=== PATIENT | male | born 1940 | race Caucasian/White ===

== ENCOUNTER 2025-05-15 12:51 | Outpatient (AMB) | payer OTHER, SELFPAY ==
--- NOTE | 2025-05-15 13:05 | A.OFFVIS_ITS ---
Intake Visit Reasons: 6M AD Allergies oxycodone (From OxyContin) Allergy (Unknown, Verified 05/08/25 09:58) Unknown Medication List - Last Reconciled 05/15/25 by Kory Graham MD carbidopa-levodopa 25-100 mg 1 tab PO TID donepezil 10 mg PO BEDTIME famotidine 20 mg PO BEDTIME PRN glipizide 5 mg PO DAILY indapamide 1.25 mg PO DAILY memantine 5 mg PO BID metformin 850 mg PO BID simvastatin 80 mg PO BEDTIME HPI Comments Details: 85 yo RH man with history of hypertension, diabetes, prostate cancer, dementia, and episodes that look like seizures. Routine EEG at office was normal. Levetiracetam did not make any difference. He continues to have episodes of shaking. His said that she was not inclined for more testing. As he was leaving the office he had the episode. It was when he was trying to pass the doorway when he froze and trembled. It was similar to parkinsonian shuffle without any alteration of consiousness. He is presenting with dementia. He has significant memory impairment, with the p hrase memory. Gone. Gone being used to describe his condition. A previous diagnostic evaluation, including a brain scan six months ago, indicated dementia. Currently, he faces challenges regarding the effectiveness of his medications. Additional concerns include difficulty swallowing, particularly when taking multiple medications, as he takes 13 pills in the morning and five in the evening. He uses a walker for mobility, suggesting some physical limitations. Despite these challenges, his mood and sleep are reportedly stable. REPLACED BY [facility] Medical History (Updated 05/15/25 @ 13:09 by Kory Graham MD) Alzheimer disease Seizure disorder Review of Systems Const Details: - Neurologic: Reports memory impairment and difficulty swallowing. Reports using a walker. - Psychiatric: Reports mood is okay. - General: Reports sleep is okay. Physical Exam Neuro Other: He is alert and awake not much interactive but able to answer questions. At times he was smiling. Facial expression blinking were slightly diminished. He has difficulty getting in and out of chair. There was [id number] generalized bradykinesia. Gait was slow and cautious. Assessment & Plan Assessment & Plan (1) Parkinson disease: Code(s): G20.A1 - Parkinson's disease without dyskinesia, without mention of fluctuations Category: Medical Qualifiers: Dyskinesia presence: without dyskinesia Fluctuating manifestations: without fluctuating manifestations Qualified Code(s): G20.A1 - Parkinson's disease without dyskinesia, without mention of fluctuations (2) Alzheimer dementia: Comment: EEG at off in Sep 2024: [place] Code(s): G30.9 - Alzheimer's disease, unspecified; F02.80 - Dementia in other diseases classified elsewhere, unspecified severity, without behavioral disturbance, psychotic disturbance, mood disturbance, and anxiety Category: Medical Qualifiers: Alzheimer's disease onset: late onset Dementia severity: moderate Dementia behavioral or psychological symptom: without behavioral, psychotic, or mood disturbance or anxiety Qualified Code(s): G30.1 - Alzheimer's disease with late onset; F02.B0 - Dementia in other diseases classified elsewhere, moderate, without behavioral disturbance, psychotic disturbance, mood disturbance, and anxiety Plan Impression: a: Dementia, moderate, probably of Alzheimer type b: Parkinsonism Rec: a: MRI brain WO to r/o alternate diagnosis such as NPH b: Memantine 10mg bid c: Donepezil 10mg a day d: Carbidopa/levodopa 25/100, 2-3 a day Orders: Orders MR head/brain wo con Today F02.B0 - Dementia in other diseases classified elsewhere, moderate, without behavioral disturbance, psychotic disturbance, mood disturbance, and anxiety, G20.A1 - Parkinson's disease without dyskinesia, without mention of fluctuations, G30.1 - Alzheimer's disease with late onset Coding Level of Care Code Tele Est Pt Level 4 (68641) Diagnoses Parkinson's disease without dyskinesia or fluctuating manifestations G20.A1 Dyskinesia presence: without dyskinesia Fluctuating manifestations: without fluctuating manifestations Moderate late onset Alzheimer's dementia without behavioral disturbance, psychotic disturbance, mood disturbance, or anxiety G30.1; F02.B0 Alzheimer's disease onset: late onset Dementia severity: moderate Dementia behavioral or psychological symptom: without behavioral, psychotic, or mood disturbance or anxiety
--- OUTSIDE RECORDS SUMMARY | 2025-05-15 13:43 | XMS_ITS | Clinical Summary ---
Author Organization [address] [facility] Address [address] [place] [address] Phone Care Team Providers Care Circuit Board Inspector Name Role Phone Arianna Conte MD Primary Care Provider [phone] Allergies Active Allergy Reactions Criticality Noted Date Comments Oxycodone Hcl Nausea And Vomiting 10/11/2009 Medications bicalutamide (CASODEX) 50 mg tablet Take 1 tablet (50 mg total) by mouth 1 (one) time each day 01/25/20 24 Active leuprolide acetate (ELIGARD SUBQ) Inject 1 Each into the skin Every 6 Months Active sucralfate (CARAFATE) 1 gram tablet Take 1 Tablet by mouth 4 times daily as needed (Heartburn) 10/30/19 24 Active CYANOCOBALAMIN, VITAMIN B-12, ORAL Take by mouth 1 (one) time each day. Active multivit with minerals/lutein (MULTIVITAMIN 50 PLUS ORAL) Take by mouth 1 (one) time each day. Active omeprazole (PriLOSEC) [address] capsule Take 1 capsule (10 mg total) by mouth 1 (one) time each day. For 360 days. 06/27/20 20 Active blood-glucose meter kit 1 kit by Not Applicable route 2 (two) times a day. 06/19/20 20 Active aspirin 81 mg EC tablet Take 1 tablet (81 mg total) by mouth 1 (one) time each day. Active levETIRAcetam (KEPPRA) 250 mg tablet Take 1 tablet (250 mg total) by mouth 2 (two) times a day. for 30 days 08/03/20 24 Active OneTouch Ultra Test test strip USE TO CHECK GLUCOSE DAILY 100 strip 1 08/24/20 Active lancets 33 gauge misc 1 Lancet by Other route. Use to check glucose daily 05/24/20 Active famotidine (PEPCID) 20 mg tablet Take 1 tablet (20 mg total) by mouth at bedtime as needed for heartburn. 90 tablet 1 09/02/20 24 Active carbidopa-levodo pa (SINEMET) 10-100 mg per tablet Take 1 tablet by mouth 3 (three) times a day. Active losartan (COZAAR) 50 mg tablet Take 0.5 tablets (25 mg total) by mouth 1 (one) time each day. Active simvastatin (ZOCOR) 80 mg tabletIndication s:Hyperlipidemia , unspecified TAKE 1 TABLET BY MOUTH EVERYDAY AT BEDTIME 90 tablet 1 03/03/20 25 Active tamsulosin (FLOMAX) 0.4 mg 24 hr capsule TAKE 1 CAPSULE BY MOUTH DAILY. TAKE 30 MINS AFTER SAME MEAL EVERY DAY. 90 capsule 1 03/28/20 25 Active donepeziL (ARICEPT) 10 mg tablet Take 1 tablet (10 mg total) by mouth at bedtime. 90 tablet 1 03/28/20 25 Active indapamide (LOZOL) 1.25 mg tabletIndication s:Essential (primary) hypertension,Chr onic kidney disease, stage 3 unspecified (CMS/HCC V24, CMS/HCC V28) Take 1 tablet (1.25 mg total) by mouth 1 (one) time each day. 90 tablet 1 03/28/20 25 Active memantine (NAMENDA) 5 mg tablet Take 1 tablet (5 mg total) by mouth 2 (two) times a day. 180 tablet 1 03/28/20 25 Active metFORMIN (GLUCOPHAGE) 850 mg tabletIndication s:Type 2 diabetes mellitus with other specified complication (CMS/HCC V24, CMS/HCC V28) Take 1 tablet (850 mg total) by mouth 2 (two) times a day with meals. 180 tablet 1 03/28/20 25 Active glipiZIDE (GLUCOTROL) 5 mg tabletIndication s:Type 2 diabetes mellitus with other specified complication (CMS/HCC V24, CMS/HCC V28) TAKE 1 TABLET BY MOUTH EVERY DAY 90 tablet 1 04/24/20 25 Active glipiZIDE (GLUCOTROL) 5 mg tabletIndication s:Type 2 diabetes mellitus with other specified complication ([facility] V24, [facility] V28) TAKE 1 TABLET BY MOUTH EVERY DAY 90 tablet 1 10/28/19 25 025 Discontinued Active Problems Problem Noted Date Diagnosed Date Seizure disorder ([facility] V24, [facility] V28) 07/29 Murmur 08/05/2022 Overview (07/05/2024): Echo 10/20. Mild MR. Normal EF Dementia ([facility] V24, [facility] V28) 08/22/2021 Overview (07/05/2024): 07/18. Neuropsych denied by insurance MRI 09/2021-- Extensive nonspecific white matter changes, may represent particularly severe chronic ischemic white matter change as is commonly seen in the elderly. Atrophy which is somewhat advanced for the patient's age Sleep apnea 06/10/2021 Overview (07/05/2024): Per pt. On cpap and supplemental O2. Could not tolerate mask. 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 Needs ct in january 2018 Essential hypertension 07/21/2016 Urinary retention 01/18/2013 Overview (07/05/2024): [facility] 01/08 - Flomax Hypercholesteremia 10/11/2009 Resolved Problems Problem Noted Date Diagnosed Date Resolved Date Hernandez's esophagus 11/10/2017 02/15/20 Overview (07/05/2024): egd 11/03/17 dr maggie Thomas eczema 09/14/2015 08/15/2024 Overview (07/05/2024): [facility] GERD (gastroesophageal reflux disease) 10/11/2009 08/15/2024 Overview (07/05/2024): Orlando Mtz MD (the patient doesn't want to see him again) Hernandez's esophagus - endoscopy q3 years (due 08/13) 01/11 - doesn't tolerate going off of PPI Encounters Date Type Department Care Team Description 02/14/2025 10:45 AM EDT Office Visit Adult Medicine [address] [address] Arianna Conte MD Essential hypertension (Primary Dx); Type 2 diabetes mellitus with hyperlipidemia ([facility] V24, CMS/[facility] V28); Hypercholesteremia; Parkinson's disease with dyskinesia and fluctuating manifestations (CMS/HCC V24, CMS/[facility] V28); Severe dementia, unspecified dementia type, unspecified whether behavioral, psychotic, or mood disturbance or anxiety (CMS/HCC V24, CMS/[facility] V28) from Last 3 Months Immunizations Name Administration Dates Next Due Influenza Quadravalent, MDCK , 0.5ml, preservative free (Flucelvax) 6mo and older 10/04/2018 Influenza Quadravalent, MDCK , 0.5ml, with preservative (Flucelvax) 6mo and older 08/18/2017 Influenza trivalent, 0.5mL ( Fluzone High-dose) 65yo and older 06/22/2023,07/25/2022,06/10/2021,06/24,07/21/2016,07/18/2015,07/07/2014 ,06/17/2013,08/16/2010,09/09/2004 Influenza trivalent, 0.5mL, preservative free (Fluarix; FluLaval; Fluzone) ages 6mo and older (Afluria) 3 years and older 09/01/2012 Influenza trivalent, with pr eservative (Fluzone; Afluria) 6mo and older 09/17/2011 Pfizer SARS-CoV-2 COVID-19, mRNA, LNP-S, preservative free 12/31/2021,07/05/2021,11/27/2020,11/06 Pneumococcal conjugate 13 va lent (Prevnar 13, PCV13) 2mo and older 02/07/2015 Pneumococcal polysaccharide 23 valent (Pneumovax 23) 2yo and older 01/04/2014,11/05/2001 SARS-COV-2 (COVID-19) Vaccin e, Unspecified 07/25/2022 Td Tetanus diptheria (Tdvax) 7yo and older 12/31/2009 Tdap Tetanus diptheria acell ular pertussis (Boostrix; Adacel) 7yo and older 11/08/2019 Zoster Live 06/09/2012 Surgical History Surgery Date Site/Laterality Comments CATARACT EXTRACTION 03/2011 PROCEDURE: HISTORICAL CATARACT REMOVAL; COMMENT: OD done by Dr. Cosme ESOPHAGOGASTRODUODENOSCOPY 03/2010 [facility] PROCEDURE: [place] ESOPHAGOGASTRODUODENOSCOPY TRANSORAL DIAGNOSTIC; COMMENT: Hernandez's esophagus; repeat in 2012 COLONOSCOPY 04/11/2005 PROCEDURE: HISTORICAL COLONOSCOPY; COMMENT: adenoma resected trans-anally COLONOSCOPY W/ BIOPSIES 09/14/12 PROCEDURE: [place] COLONOSCOPY STOMA W/BIOPSY SINGLE/MULTIPLE; COMMENT: rectal adenoma and tics; repeat sigmoidoscopy in 1 year OTHER SURGICAL HISTORY 01/04/13 PROCEDURE: [place] PROCTOSGMDSC RIGID RMVL 1 LESION CAUTERY; COMMENT: Dr. Osorio - excision of rectal adenoma EYE SURGERY PROCEDURE: HISTORICAL EYE SURGERY; COMMENT: YAG capsulotomy by Dr. Cosme ESOPHAGOGASTRODUODENOSCOPY 11/03/2017 [facility] PROCEDURE: [place] EGD TRANSORAL BIOPSY SINGLE/MULTIPLE; COMMENT: 6 cm hiatus hernia, without Hernandez's on biopsy. Would not repeat COLONOSCOPY 11/03/17 [facility] PROCEDURE: [place] COLONOSCOPY STOMA W/RMVL SAVITA POLYP/OTH LES SNARE; COMMENT: tics, hemorrhoids and hyperplastic polyp; Would not repeat. Medical History Medical History Date Comments Urinary retention 01/18/2013 DX:Urinary ret ention; COMMENT: [facility] 01/08 - Flomax Type II or unspecified type diabetes mellitus without mention of complication, not stated as uncontrolled 10/11/2009 DX:Type II or unspecified ty pe diabetes mellitus without mention of complication, not stated as uncontrolled; COMMENT: Only rarely checks fingerstick blood sugars Pseudophakia 08/12/2012 DX:Pseudophakia Overweight (BMI 25.0-29.9) 07/07/2014 DX:Ov erweight (BMI 25.0-29.9) Ocular hypertension 12/06/2009 DX:Ocular hy pertension Hyperlipemia 10/11/2009 DX:Hyperlipemia 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 Osorio Patient cancelled sigmoidoscopy with Dr. Mtz (per office documentation) 02/08- irregular rectal mucosa on exam; flexible sigmoidoscopy under anesthesia with pathology shows incompletely resected tubulovillous adenoma; unremarkable follow up 10/12, 05/12; discharged to routine care with Dr. 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 Needs ct in january 2018 Hernandez's esophagus 11/10/2017 DX:Hernandez's esophagus; COMMENT: egd 11/03/17 dr serrano Family History Medical History Relation Name Comments Cataracts Aunt maternal No Known Problems Brother 1 Other cancer Brother 2 No Known Problems Daughter Stroke Father No Known Problems Maternal Grandfather No Known Problems Maternal Grandmother No Known Problems Mother No Known Problems Other No Known Problems Paternal Grandfather No Known Problems Paternal Grandmother Uterine cancer Sister Hyperlipidemia Son No Known Problems Uncle Blindness Neg Hx Glaucoma Neg Hx Macular degeneration Neg Hx Strabismus Neg Hx Relation Name Status Comments Aunt Brother 1 Alive Brother 2 Daughter Alive Father Maternal Grandfather Maternal Grandmother Mother Other Paternal Grandfather Paternal Grandmother Sister Son Alive Uncle Social History Tobacco Use Types Packs/Day Years Used Date Smoking Tobacco: Never Smokeless Tobacco: Never Tobacco Cessation:Counseling Given: Not Answered Alcohol Use Standard Drinks/Week Comments Yes 7 (1 standard drink = 0.6 oz pur e alcohol) Sex and Gender Information Value Date Recorded Sex Assigned at Not on file Legal Sex Male 11:32 PM EST Gender Identity Not on file Sexual Orientation Not on file Obstetrics History Last Filed Vital Signs Vital Sign Reading Time Taken Comments Blood Pressure 103/65 02/14/2025 10:33 AM EDT Pulse 70 02/14/2025 10:33 AM EDT Temperature 36.3 C (97.4 F) 02/14/2025 10:33 AM EDT Respiratory Rate - - Oxygen Saturation 95% 08/15/2024 9:57 AM EST Inhaled Oxygen Concentration - - Weight 93.6 kg (206 lb 6.4 oz) 02/14/2025 10:33 AM EDT Height 172.7 cm (5' 8 ) 02/14/2025 10:33 AM EDT Body Mass Index 31.38 02/14/2025 10:33 AM EDT Plan of Treatment Upcoming Encounters Date Type Department Care Team (Late st Contact Info) Description 08/22/2025 10:30 AM EST Office Visit Adult [facility] [address] [place] [address] Arianna Conte MD [address] [place] [address] Health Maintenance Due Date Last Done Comments Zoster Vaccines (1 of 2) 08/04/2012 06/09/2012 RSV Immunization Adult Patients (1 - 1-dose 75+ series) 2013 Falls Risk Assessment 09/06/2022 Medicare Annual Wellness Visit 09/06/2022 Social Influencers of Health Screening 09/06/2022 COVID-19 Vaccine ( season) 2024 06/22/2023, 07/25/2022, 12/31/2021, Additional history exists Depression Screening 09/28/2024 08/10/2024, 01/11/20 24 Influenza Vaccine (#1) 2025 , 06/22/2023, 07/25/2022, Additional history exists Diabetes: Blood Sugar Control Test (HGBA1C) 08/12/2025 02/09/2025, 08/11/2024, 05/24/2024, Additional history exists Diabetes: Annual Retina Eye Exam 12/23/2025 12/23/2024, 12/23/2023 Hypertension/CHF/CAD Annual BMP Blood Test 02/09/2026 02/09/2025, 08/11/2024, 02/04/2024, Additional history exists Diabetes: Annual Foot Exam 02/14/202602/14, 08/15/2024, 02/10/2024 DTaP,Tdap,and Td Vaccines (3 - Td or Tdap) 11/08/2029 11/08/2019, 12/31/2009 Cholesterol Screening (Lipid Panel) 02/09/2030 02/09/2025, 08/11/2024, 02/04/2024, Additional history exists Pneumococcal Vaccine: 50+ Years Completed 02/07/2015, 01/04/2014, 11/05/2001 HIB Vaccines Aged Out No longer eligi ble based on patient's age to complete this topic HPV Vaccines Aged Out No longer eligi ble based on patient's age to complete this topic Hepatitis A Vaccines Aged Out No long er eligible based on patient's age to complete this topic Hepatitis B Vaccines Aged Out No long er eligible based on patient's age to complete this topic IPV Vaccines Aged Out No longer eligi ble based on patient's age to complete this topic MMR Vaccines Aged Out No longer eligi ble based on patient's age to complete this topic Meningococcal ACWY Vaccine Aged Out N o longer eligible based on patient's age to complete this topic Meningococcal B Vaccine Aged Out No l onger eligible based on patient's age to complete this topic RSV Immunization Patients Under 20 months Aged Out No longer eligible based on patient's age to complete this topic Varicella Vaccines Aged Out No longer eligible based on patient's age to complete this topic Procedures Procedure Name Priority Date/Time Associated Diagnosis Comments COMPREHENSIVE METABOLIC PANEL Routine 02/09/2025 10:01 AM EDT Type 2 diabetes mellitus with hyperlipidemia ([facility] V24, [facility] V28) HEMOGLOBIN A1C Routine 02/09/2025 10:01 AM EDT Type 2 diabetes mellitus with hyperlipidemia ([facility] V24, [facility] V28) LIPID PANEL WITH REFLEX TO DIRECT LDL Routine 02/09/2025 10:01 AM EDT Type 2 diabetes mellitus with hyperlipidemia ([facility] V24, [facility] V28) EXTERNAL DIABETIC RETINA EYE EXAM 12/23/2024 DIABETES FOOT EXAM Routine 02/10/2024 DEPRESSION SCREENING Routine 2024 from Last 3 Months or Most Recently Relevant to Health Maintenance Results * (ABNORMAL) Lipid panel with reflex to direct LDL (02/09/2025 10:01 AM EDT) Cholesterol 137 0 - 200 mg/dL LAB CHEMISTRY METHOD 02/09/2025 1:47 PM [facility] Triglycerides 199(H) 0 - 150 mg/dL LAB CHEMISTRY METHOD 02/09/2025 1:47 PM [facility] HDL 42 >=40 mg/dL LAB CHEMISTRY METHOD 02/09/2025 1:47 PM [facility] LDL Calculated 55 0 - 100 mg/dL LAB CHEMISTRY METHOD 02/09/2025 1:47 PM [facility] VLDL Cholesterol Sam 39.8 mg/dL LAB CHEMISTRY METHOD 02/09/2025 1:47 PM [facility] Non HDL Chol. (LDL+VLDL) 95 <145 mg/dL LAB CHEMISTRY METHOD 02/09/2025 1:47 PM [facility] Chol/HDL Ratio 3.3 0.0 - 4.4 LAB CHEMISTRY METHOD 02/09/2025 1:47 PM [facility] Blood Venous blood specimen / Unknown Venipuncture / Unknown 02/09/2025 10:01 AM EDT 02/09/2025 10:06 AM EDT us Arianna Conte MD LAB BLOOD ORDERABLES Final Res ult Performing Organization Address [facility]/ZIP Co de Phone Number [facility] [address] [place] [address], [place] [phone] * Hemoglobin A1c (02/09/2025 10:01 AM EDT) [facility] Hemoglobin A1C 6.3 <6.5 % LAB CHEMISTRY METHOD 02/09/2025 5:16 PM EDT [facility] Mean Bld Glu Estim. 134 mg/dL LAB CHEMISTRY METHOD 02/09/2025 5:16 PM EDT [facility] Blood Venous blood specimen / Unknown Venipuncture / Unknown 02/09/2025 10:01 AM EDT 02/09/2025 10:06 AM EDT us Arianna Conte MD LAB BLOOD ORDERABLES Final Res ult [facility] [address] [place] [address], [place] [phone] * (ABNORMAL) Comprehensive metabolic panel (02/09/2025 10:01 AM EDT) [facility] Sodium 140 133 - 145 mmol/L LAB CHEMISTRY METHOD 02/09/2025 1:47 PM EDT [facility] Potassium 4.6 3.5 - 5.5 mmol/L LAB CHEMISTRY METHOD 02/09/2025 1:47 PM EDT [facility] Chloride 107 96 - 110 mmol/L LAB CHEMISTRY METHOD 02/09/2025 1:47 PM EDT [facility] CO2 25 21 - 32 mmol/L LAB CHEMISTRY METHOD 02/09/2025 1:47 PM EDT [facility] Anion Gap 8 3 - 11 LAB CHEMISTRY METHOD 02/09/2025 1:47 PM [facility] Glucose 259(H) 70 - 100 mg/dL LAB CHEMISTRY METHOD 02/09/2025 1:47 PM [facility] BUN 27(H) 5 - 25 mg/dL LAB CHEMISTRY METHOD 02/09/2025 1:47 PM [facility] Creatinine 1.75(H) 0.70 - 1.30 mg/dL LAB CHEMISTRY METHOD 02/09/2025 1:47 PM [facility] eGFR 37(L) >=60 mL/min/1. 73m2 LAB CHEMISTRY METHOD 02/09/2025 1:47 PM [facility] Comment:Calculation based on the Chronic Kidney Disease Epidemiology Collaboration (CKD-EPI) equation refit without adjustment for race. BUN/Creatinine Ratio 15.4 LAB CHEMISTRY METHOD 02/09/2025 1:47 PM [facility] Calcium 9.8 8.5 - 10.5 mg/dL LAB CHEMISTRY METHOD 02/09/2025 1:47 PM [facility] AST (SGOT) 18 10 - 42 unit/L LAB CHEMISTRY METHOD 02/09/2025 1:47 PM [facility] ALT (SGPT) 22 10 - 60 unit/L LAB CHEMISTRY METHOD 02/09/2025 1:47 PM [facility] Alkaline Phosphatase 72 42 - 121 unit/L LAB CHEMISTRY METHOD 02/09/2025 1:47 PM [facility] Total Protein 6.7 6.0 - 8.0 g/dL LAB CHEMISTRY METHOD 02/09/2025 1:47 PM [facility] Albumin 4.0 3.2 - 5.0 g/dL LAB CHEMISTRY METHOD 02/09/2025 1:47 PM [facility] Total Bilirubin 0.5 0.0 - 1.4 mg/dL LAB CHEMISTRY METHOD 02/09/2025 1:47 PM [facility] Blood Venous blood specimen / Unknown Venipuncture / Unknown 02/09/2025 10:01 AM EDT 02/09/2025 10:06 AM EDT Arianna Conte MD LAB BLOOD ORDERABLES Final Res ult [facility] [address] [place] [address], [place] [phone] * External Diabetic Retina Eye Exam Report (12/23/2024) Anatomical Region Laterality Modality Ultrasound Provider [facility] US PROCEDURES Final Result * Diabetes Foot Exam (02/10/2024) Pathologist [facility] Diabetes: Annual Foot Exam abstracted Historical Provider HEALTH MAINTENANCE Final Result * Depression Screening (2024) Pathologist [facility] Depression Screening abstracted Historical Provider HEALTH MAINTENANCE Final Result from Last 3 Months or Most Recently Relevant to Health Maintenance Insurance [employer] Care Teams Circuit Board Inspector Relationship Specialty Start Date End Date Arianna Conte MD [address] [place] [id number] PCP - General Internal Medicine 01/25/21
--- OUTSIDE RECORDS SUMMARY | 2025-05-15 13:43 | XMS_ITS ---
Author Name [facility] Organization Unknown Care Team Organization Name Specialty Phone Email Start Date End Da te [facility] JEANINE VEGA Primary Care 08/05/2022 05/16/2024
== END 2025-05-15 13:14 | disposition home or self-care (01) ==
LOC: HO.HSM 12:51
PROVIDERS: PCP Pediatrics; Referring Provider Pediatrics; Visit Provider Psychiatry & Neurology Neurology
DX: G20.A1 Parkinson's disease without dyskinesia, without mention of fluctuations (principal); G30.1 Alzheimer's disease with late onset; F02.B0 Dementia in other diseases classified elsewhere, moderate, without behavioral disturbance, psychotic disturbance, mood disturbance, and anxiety
CPT/HCPCS: 99214

== ENCOUNTER 2025-05-29 10:20 | Outpatient (REF) | payer OTHER, SELFPAY ==
--- NOTE | ~2025-05-29 | MR_ITS ---
EXAMINATION: MR BRAIN WITHOUT CONTRAST CLINICAL INFORMATION: Alzheimer's disease with late onset COMPARISON: None available. TECHNIQUE: MRI of the brain was obtained using routine sequences without contrast. FINDINGS: No restricted diffusion. No acute intracranial hemorrhage, mass effect, midline shift, hydrocephalus or herniation. Ward-white matter differentiation is normal. Bilateral multifocal patchy and confluent deep periventricular subcortical white matter hyperintense T2 FLAIR signal involving centrum semiovale and hui radiata. Multifocal old lacunar infarcts, right thalamus, basal ganglia and hui radiata white matter. Prominence of the extra-axial CSF spaces cerebral sulci and ventricles as well as the cerebellar folia. 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 Sellar/suprasellar region demonstrated no signal abnormality or gross masses. Craniocervical junction demonstrates normal position of the cerebellar tonsils. Volume loss in the hippocampi without T2 FLAIR signal abnormality. MR/MR head/brain wo con IMPRESSION: Extensive small vessel occlusive disease. Global cerebral atrophy. No acute stroke/nonhemorrhagic ischemia or acute hemorrhage. Electronically signed by: Alejandro Morris MD 05/30/2025 01:14 PM EDT
--- OUTSIDE RECORDS SUMMARY | 2025-05-29 10:24 | XMS_ITS | Clinical Summary ---
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 Active multivit with minerals/lutein (MULTIVITAMIN 50 PLUS ORAL) Take by mouth 1 (one) time each day. Active omeprazole (PriLOSEC) [address] capsule Take 1 capsule (10 mg total) by mouth 1 (one) time each day. For 360 days. 0 Active blood-glucose meter kit 1 kit by Not Applicable route 2 (two) times a day. 0 Active aspirin 81 mg EC tablet Take 1 tablet (81 mg total) by mouth 1 (one) time each day. Active levETIRAcetam (KEPPRA) 250 mg tablet Take 1 tablet (250 mg total) by mouth 2 (two) times a day. for 30 days 4 Active OneTouch Ultra Test test strip USE TO CHECK GLUCOSE DAILY 100 strip 1 4 Active lancets 33 gauge misc 1 Lancet by Other route. Use to check glucose daily 4 Active famotidine (PEPCID) 20 mg tablet Take 1 tablet (20 mg total) by mouth at bedtime as needed for heartburn. 90 tablet 1 4 Active carbidopa-levodop a (SINEMET) 10-100 mg per tablet Take 1 tablet by mouth 3 (three) times a day. Active losartan (COZAAR) 50 mg tablet Take 0.5 tablets (25 mg total) by mouth 1 (one) time each day. Active simvastatin (ZOCOR) 80 mg tabletIndications :Hyperlipidemia, unspecified TAKE 1 TABLET BY MOUTH EVERYDAY AT BEDTIME 90 tablet 1 5 Active tamsulosin (FLOMAX) 0.4 mg 24 hr capsule TAKE 1 CAPSULE BY MOUTH DAILY. TAKE 30 MINS AFTER SAME MEAL EVERY DAY. 90 capsule 1 5 Active donepeziL (ARICEPT) 10 mg tablet Take 1 tablet (10 mg total) by mouth at bedtime. 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 90 tablet 1 5 Active memantine (NAMENDA) 5 mg tablet Take 1 tablet (5 mg total) by mouth 2 (two) times a day. 180 tablet 1 5 Active metFORMIN (GLUCOPHAGE) 850 mg tabletIndications :Type 2 diabetes mellitus with other specified complication (CMS/HCC V24, CMS/HCC V28) Take 1 tablet (850 mg total) by mouth 2 (two) times a day with meals. 180 tablet 1 5 Active glipiZIDE (GLUCOTROL) 5 mg tabletIndications :Type 2 diabetes mellitus with other specified complication (CMS/HCC V24, CMS/HCC V28) TAKE 1 TABLET BY MOUTH EVERY DAY 90 tablet 1 Active Active Problems Problem Noted Date Diagnosed Date Seizure disorder ([facility] V24, [facility] V28) 07/29 Murmur 08/05/2022 Overview (07/05/2024): Echo 10/20. Mild MR. Normal EF Dementia ([facility] V24, [facility] V28) 08/22/2021 Overview (07/05/2024): 07/18. Neuropsych [...] (chronic renal insuffici ency), stage 3 (moderate) ([facility] V24, [facility] V28) 05/20/2019 Hernandez's esophagus with dysplasia 06/17/2018 Gastroesophageal reflux disease without esophagi tis 06/17/2018 ILD (interstitial lung disease) ([facility] V24, [facility] V28) 06/17/2018 Type 2 diabetes mellitus wit h hyperlipidemia ([facility] V24, [facility] V28) 08/18/2017 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 Cosme ESOPHAGOGASTRODUODENOSCOPY 03/2010 Smith PROCEDURE: MN ESOPHAGOGASTRODUODENOSCOPY TRANSORAL DIAGNOSTIC; COMMENT: Hernandez's esophagus; repeat in 2012 COLONOSCOPY 04/11/2005 PROCEDURE: HISTORICAL COLONOSCOPY; COMMENT: adenoma resected trans-anally COLONOSCOPY W/ BIOPSIES 09/14/12 PROCEDURE: MN COLONOSCOPY STOMA W/BIOPSY SINGLE/MULTIPLE; COMMENT: rectal adenoma and tics; repeat sigmoidoscopy in 1 year OTHER SURGICAL HISTORY 01/04/13 PROCEDURE: MN PROCTOSGMDSC RIGID RMVL 1 LESION CAUTERY; COMMENT: Dr. Osorio - excision of rectal adenoma EYE SURGERY early PROCEDURE: HISTORICAL EYE SURGERY; COMMENT: YAG capsulotomy by Dr. Cosme ESOPHAGOGASTRODUODENOSCOPY 11/03/2017 Tisha PROCEDURE: MN EGD TRANSORAL BIOPSY SINGLE/MULTIPLE; COMMENT: 6 cm hiatus hernia, without Hernandez's on biopsy. Would not repeat COLONOSCOPY 11/03/17 Tisha PROCEDURE: MN COLONOSCOPY STOMA W/RMVL SAVITA POLYP/OTH LES SNARE; COMMENT: tics, hemorrhoids and hyperplastic polyp; Would not repeat. Medical History Medical History Date Comments Urinary retention 01/18/2013 DX:Urinary ret ention; COMMENT: [facility] 01/08 - Flomax Type II or [...] 10:30 AM EST Office Visit Adult Medicine - [place] [address] [place] [address] Arianna Conte MD [address] [place] [address] Health Maintenance Due Date Last Done Comments Zoster Vaccines (1 of 2) 08/04/2012 06/09/2012 RSV Immunization Adult Patients (1 - 1-dose 75+ series) 2013 Falls Risk Assessment 09/06/2022 Medicare Annual Wellness Visit 09/06/2022 Social Influencers of Health Screening 09/06/2022 Depression Screening 09/28/2024 08/10/2024, 01/11/20 24 COVID-19 Vaccine ( season) 2025 06/22/2023, 07/25/2022, 12/31/2021, Additional history exists Influenza Vaccine (#1) 2025 , 06/22/2023, 07/25/2022, [...] EDT Type 2 diabetes mellitus with hyperlipidemia ([facility]/HCC V24, [facility] V28) HEMOGLOBIN A1C Routine 02/09/2025 10:01 AM EDT Type 2 diabetes mellitus with hyperlipidemia ([facility]/HCC V24, [facility] V28) LIPID PANEL WITH REFLEX TO DIRECT LDL Routine 02/09/2025 10:01 AM EDT Type 2 diabetes mellitus with hyperlipidemia (CMS/HCC V24, CMS/HCC V28) EXTERNAL DIABETIC RETINA EYE EXAM 12/23/2024 DIABETES FOOT EXAM Routine 02/10/2024 DEPRESSION SCREENING Routine 2024 from Last 3 Months or Most Recently Relevant to Health Maintenance Results * (ABNORMAL) Lipid panel with reflex to direct LDL (02/09/2025 10:01 AM EDT) Cholesterol 137 0 - 200 mg/dL LAB CHEMISTRY METHOD 02/09/2025 1:47 PM EDT [facility] Triglycerides 199(H) 0 - 150 mg/dL LAB CHEMISTRY METHOD 02/09/2025 1:47 PM EDT [facility] HDL 42 >=40 mg/dL LAB CHEMISTRY METHOD 02/09/2025 1:47 PM EDT [facility] LDL Calculated 55 0 - 100 mg/dL LAB CHEMISTRY METHOD 02/09/2025 1:47 PM EDT [facility] VLDL Cholesterol Sam 39.8 mg/dL LAB CHEMISTRY METHOD 02/09/2025 1:47 PM EDT [facility] Non HDL Chol. (LDL+VLDL) 95 <145 mg/dL LAB CHEMISTRY METHOD 02/09/2025 1:47 PM EDT [facility] Chol/HDL Ratio 3.3 0.0 - 4.4 LAB CHEMISTRY METHOD 02/09/2025 1:47 PM EDT [facility] Blood Venous blood specimen / Unknown Venipuncture / Unknown 02/09/2025 10:01 AM EDT 02/09/2025 10:06 AM EDT C Lobo Conte MD LAB BLOOD ORDERABLES Final Res ult [facility] [address] [place] [address], * Hemoglobin A1c (02/09/2025 10:01 AM EDT) Hemoglobin A1C 6.3 <6.5 % LAB CHEMISTRY METHOD 02/09/2025 5:16 PM EDT [facility] Mean Bld Glu Estim. 134 mg/dL LAB CHEMISTRY METHOD 02/09/2025 5:16 PM EDT [facility] Blood Venous blood specimen / Unknown Venipuncture / Unknown 02/09/2025 10:01 AM EDT 02/09/2025 10:06 AM EDT [facility] LAB BLOOD ORDERABLES Final Res ult [facility] [address] [place] [address], [place] [phone] * (ABNORMAL) Comprehensive metabolic panel (02/09/2025 10:01 AM EDT) Sodium 140 133 - 145 mmol/L LAB CHEMISTRY METHOD 02/[facility]2025 1[facility] Potassium 4.6 3.5 - 5.5 mmol/L LAB CHEMISTRY METHOD 02/09/2025 1:47 PM [facility] Chloride 107 96 - 110 mmol/L LAB CHEMISTRY METHOD 02/09/2025 1:47 PM [facility] CO2 25 21 - 32 mmol/L LAB CHEMISTRY METHOD 02/09/2025 1:47 PM [facility] Anion Gap 8 3 - 11 LAB CHEMISTRY METHOD 02/09/2025 1:47 PM [facility] Glucose 259(H) 70 - 100 mg/dL LAB CHEMISTRY METHOD 02/09/2025 1:47 PM [facility] BUN 27(H) 5 - 25 mg/dL LAB CHEMISTRY METHOD 02/09/2025 1:47 PM [facility] Creatinine 1.75(H) 0.70 - 1.30 mg/dL LAB CHEMISTRY METHOD 02/09/2025 1:47 PM [facility] eGFR 37(L) >=60 mL/min/1. 73m2 LAB CHEMISTRY METHOD 02/09/2025 1:47 PM [facility] Comment:Calculation based on the Chronic Kidney Disease Epidemiology Collaboration (CKD-EPI) equation refit without adjustment for race. BUN/Creatinine Ratio 15.4 LAB CHEMISTRY METHOD 02/09/2025 1:47 PM T [facility] Calcium 9.8 8.5 - 10.5 mg/dL LAB CHEMISTRY METHOD 02/09/2025 1:47 PM [facility] AST (SGOT) 18 10 - 42 unit/L LAB CHEMISTRY METHOD 02/09/2025 1:47 PM [facility] ALT (SGPT) 22 10 - 60 unit/L LAB CHEMISTRY METHOD 02/09/2025 1:47 PM [facility] Alkaline Phosphatase 72 42 - 121 unit/L LAB CHEMISTRY METHOD 02/09/2025 1:47 PM [facility] Total Protein 6.7 6.0 - 8.0 g/dL LAB CHEMISTRY METHOD 02/09/2025 1:47 PM [facility] Albumin 4.0 3.2 - 5.0 g/dL LAB CHEMISTRY METHOD 02/09/2025 1:47 PM [facility] Total Bilirubin 0.5 0.0 - 1.4 mg/dL LAB CHEMISTRY METHOD 02/09/2025 1:47 PM [facility] Blood Venous blood specimen / Unknown Venipuncture / Unknown 02/09/2025 10:01 AM EDT 02/09/2025 10:06 AM EDT Arianna Conte MD LAB BLOOD ORDERABLES Final Res ult [facility] [address] [place] [address], [place] [phone] * External Diabetic Retina Eye Exam Report (12/23/2024) Anatomical Region Laterality Modality Ultrasound us Provider [facility] US PROCEDURES Final Result * Diabetes Foot Exam (02/10/2024) Diabetes: Annual Foot Exam abstracted us Historical Provider HEALTH MAINTENANCE Final Result * Depression Screening (2024) Depression Screening abstracted us Historical Provider HEALTH MAINTENANCE Final Result from Last 3 Months or Most Recently Relevant to Health Maintenance Insurance [employer] MED[employer]ARE [employer]AGE Care 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
== END 2025-05-29 10:21 | disposition home or self-care (01) ==
LOC: HO.MRI 10:20
PROVIDERS: PCP Pediatrics; Visit Provider Psychiatry & Neurology Neurology
DX: G30.1 Alzheimer's disease with late onset (principal); F02.B0 Dementia in other diseases classified elsewhere, moderate, without behavioral disturbance, psychotic disturbance, mood disturbance, and anxiety; G20.A1 Parkinson's disease without dyskinesia, without mention of fluctuations
CPT/HCPCS: 70551

== ENCOUNTER → 2025-05-29 10:24 | Outpatient (BNV) | payer OTHER, SELFPAY | PROVIDERS: PCP Pediatrics; Visit Provider Radiology Diagnostic Radiology | DX: G30.9 Alzheimer's disease, unspecified (principal) | CPT/HCPCS: 70551 ==

== ENCOUNTER 2025-07-04 12:43 | Outpatient (AMB) | payer OTHER, SELFPAY ==
--- NOTE | 2025-07-04 12:55 | A.OFFVIS_ITS ---
Intake Visit Reasons: after mri Allergies oxycodone (From OxyContin) Allergy (Unknown, Verified 05/08/25 09:58) Unknown HPI Comments Details: 85 years old man with dementia probably of Alzheimer type and parkinsonian features. He was back after MRI of brain. Apparently he has behavior was getting worse. He was not recognizing family members and trying to leave his home stating that he was going home. This was happening more in afternoon. Risperidone 1 mg was prescribed that has not been used yet. [facility] Medical History (Updated 07/04/25 @ 13:08 by Kory Graham MD) Alzheimer disease Seizure disorder Review of Systems Const Details: - Neurologic: Reports memory impairment and difficulty swallowing. Reports using a walker. - Psychiatric: Reports mood is okay. - General: Reports sleep is okay. Physical Exam Neuro Other: Mental Status: Alert and oriented to person, place, and time. Normal attention. Normal spontaneous speech, fluency, and comprehension. No obvious issues with mood and memory. Affect is appropriate. Cranial Nerves: CN II: Visual bernal full to confrontation, visual acuity intact. CN III, IV, : Pupils equal, round, reactive to light and accommodation. Extraocular movements are normal. CN V: Facial sensation is normal. CN VII: Facial movements symmetrical. CN VIII: Hearing intact to bedside conversation is normal. CN IX, X: Palate elevates symmetrically. CN XI: Shoulder shrug and head turn symmetrical. CN XII: Tongue midline without atrophy or fasciculations. Extrapyramidal: Full facial expressions and blinking. No rigidity. Movements are appropriate with no tremor or abnormality. Speech: Normal; no dysarthria or tremor. Assessment & Plan Assessment & Plan (1) Alzheimer dementia: Comment: MRI brain WO [place] [facility] [place] 2025: Mod to severe diffuse atrophy, and mod to severe MVD EEG at [facility] in Sep 2024: [place] Code(s): G30.9 - Alzheimer's disease, unspecified; F02.80 - Dementia in other diseases classified elsewhere, unspecified severity, without behavioral disturbance, psychotic disturbance, mood disturbance, and anxiety Category: Medical Qualifiers: Alzheimer's disease onset: late onset Dementia severity: moderate D ementia behavioral or psychological symptom: without behavioral, psychotic, or mood disturbance or anxiety Qualified Code(s): G30.1 - Alzheimer's disease with late onset; F02.B0 - Dementia in other diseases classified elsewhere, moderate, without behavioral disturbance, psychotic disturbance, mood disturbance, and anxiety (2) Parkinson disease: Code(s): G20.A1 - Parkinson's disease without dyskinesia, without mention of fluctuations Category: Medical Qualifiers: Dyskinesia presence: without dyskinesia Fluctuating manifestations: without fluctuating manifestations Qualified Code(s): G20.A1 - Parkinson's disease without dyskinesia, without mention of fluctuations (3) Multifactorial dementia: Code(s): F03.90 - Unspecified dementia, unspecified severity, without behavioral disturbance, psychotic disturbance, mood disturbance, and anxiety Category: Medical Plan Impression: a: 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 c: Behavioral symptoms (sundowning type and other) related to dementia Rec: a: Donepezil 10mg at night b: Make Memantine 10mg bid c: Sertraline 25mg one with breakfast d: Risperidone 0.25mg one in afternoon, and another as needed Medications: New risperidone 0.25 mg PO DAILY 90 tabs 0RF memantine 10 mg PO BID 180 tabs 1RF sertraline 25 mg PO DAILY 90 tabs 0RF Coding Level of Care Code Est Pt Level 4 (52392) Diagnoses Moderate late onset Alzheimer's dementia without behavioral disturbance, psychotic disturbance, mood disturbance, or anxiety G30.1; F02.B0 Alzheimer's disease onset: late onset Dementia severity: moderate Dementia behavioral or psychological symptom: without behavioral, psychotic, or mood disturbance or anxiety Parkinson's disease without dyskinesia or fluctuating manifestations G20.A1 Dyskinesia presence: without dyskinesia Fluctuating manifestations: without fluctuating manifestations Multifactorial dementia F03.90
--- OUTSIDE RECORDS SUMMARY | 2025-07-04 15:34 | XMS_ITS | Clinical Summary ---
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 Use to check glucose daily 05/24/20 24 Active famotidine (PEPCID) 20 mg tablet Take 1 tablet (20 mg total) by mouth at bedtime as needed for heartburn. 90 tablet 1 09/02/20 24 Active carbidopa-levodo pa (SINEMET) 10-100 mg per tablet Take 1 tablet by mouth 3 (three) times a day. Active simvastatin (ZOCOR) 80 mg tabletIndication [...] DAY 90 tablet 1 04/24/20 25 Active risperiDONE (RisperDAL) 1 mg tabletIndication s:aggitation, dementia Take 1 tablet (1 mg total) by mouth 1 (one) time each day if needed (aggitation). 30 each 1 06/27/20 25 Active losartan (Cozaar) 25 mg tablet Take 1 tablet (25 mg total) by mouth 1 (one) time each day. 90 each 06/27/20 25 Active losartan (COZAAR) 50 mg tablet Take 0.5 tablets (25 mg total) by mouth 1 (one) time each day. 025 Discontinued Active Problems Problem Noted Date Diagnosed Date Seizure disorder ([facility] V24, [facility] V28) 07/29 Murmur 08/05/2022 Overview (07/05/2024): Echo 10/20. Mild MR. Normal EF Dementia ([facility] V24, [facility] V28) 08/22/2021 Overview (07/05/2024): 07/18. Neuropsych denied by insurance MRI 09/2021-- Extensive nonspecific white matter changes, may represent particularly severe chronic ischemic white matter change as is commonly seen in the elderly. Atrophy which is somewhat advanced for the patient's age Sleep apnea 06/10/2021 Overview (07/05/2024): Per pt. On cpap and supplemental O2. Could not tolerate mask. 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 Needs ct in january 2018 Essential hypertension 07/21/2016 Urinary retention 01/18/2013 Overview (07/05/2024): [facility] 01/08 - [place] Hypercholesteremia 10/11/2009 Resolved Problems Problem Noted Date Diagnosed Date Resolved Date Hernandez's esophagus 11/10/2017 02/15/20 25 Overview (07/05/2024): egd 11/03/17 dr serrano Astsandietotic eczema 09/14/2015 08/15/2024 Overview (07/05/2024): [facility] GERD (gastroesophageal reflux disease) 10/11/2009 08/15/2024 Overview (07/05/2024): Orlando Mtz MD (the patient doesn't want to see him again) Hernandez's esophagus - endoscopy q3 years (due 08/13) 01/11 - doesn't tolerate going off of PPI Encounters Date Type Department Care Team Description 06/27/2025 1:30 PM EDT Office Visit Adult Medicine [address] [address] Arianna Conte MD Severe dementia, unspecified dementia type, unspecified whether behavioral, psychotic, or mood disturbance or anxiety ([facility] V24, [facility] V28) (Primary Dx) from Last 3 Months Immunizations Immunization Administration Dates Next Due Influenza Quadravalent, MDCK , 0.5ml, preservative free (Flucelvax) 6mo and older 10/04/2018 Influenza Quadravalent, MDCK , 0.5ml, with preservative (Flucelvax) 6mo and older 08/18/2017 Influenza trivalent, 0.5mL ( Fluad) 65yo and older 06/27/2025 Influenza trivalent, 0.5mL ( Fluzone High-dose) 63yo [...] by Dr. Cosme ESOPHAGOGASTRODUODENOSCOPY 03/2010 [place] PROCEDURE: SD ESOPHAGOGASTRODUODENOSCOPY TRANSORAL DIAGNOSTIC; COMMENT: Hernandez's esophagus; repeat in 2012 COLONOSCOPY 04/11/2005 PROCEDURE: HISTORICAL COLONOSCOPY; COMMENT: adenoma resected trans-anally COLONOSCOPY W/ BIOPSIES 09/14/12 PROCEDURE: SD COLONOSCOPY STOMA W/BIOPSY SINGLE/MULTIPLE; COMMENT: rectal adenoma and tics; repeat sigmoidoscopy in 1 year OTHER SURGICAL HISTORY 01/04/13 PROCEDURE: SD PROCTOSGMDSC RIGID RMVL 1 LESION CAUTERY; COMMENT: Dr. Osorio - excision of rectal adenoma EYE SURGERY PROCEDURE: HISTORICAL EYE SURGERY; COMMENT: YAG capsulotomy by Dr. Cosme ESOPHAGOGASTRODUODENOSCOPY 11/03/2017 Tisha PROCEDURE: SD EGD TRANSORAL BIOPSY SINGLE/MULTIPLE; COMMENT: 6 cm hiatus hernia, without Hernandez's on biopsy. Would not repeat COLONOSCOPY 11/03/17 Tisha PROCEDURE: SD COLONOSCOPY STOMA W/RMVL SAVITA POLYP/OTH LES SNARE; COMMENT: tics, hemorrhoids and hyperplastic polyp; Would not repeat. Medical History Medical History Date Comments Urinary retention 01/18/2013 DX:Urinary ret ention; COMMENT: [facility] 01/08 - [place] Type II [...] 10:30 AM EST Office Visit Adult Medicine [facility] [address] [place] [address] Arianna Conte MD [address] [place] [address] Health Maintenance Due Date Last Done Comments Zoster Vaccines (1 of 2) 08/04/2012 06/09/2012 RSV Immunization Adult Patients (1 - 1-dose 75+ series) 2013 Falls Risk Assessment 09/06/2022 Medicare Annual Wellness Visit 09/06/2022 Social Influencers of Health Screening 09/06/2022 Depression Screening 09/28/2024 08/10/2024, 01/11/20 24 COVID-19 Vaccine ( season) 2025 06/22/2023, 07/25/2022, 12/31/2021, Additional history exists Diabetes: Blood Sugar Control [...] Vaccine: 50+ Years Completed 02/07/2015, 01/04/2014, 11/05/2001 Influenza Vaccine Completed 06/27/2025, , 06/22/2023, Additional history exists HIB Vaccines Aged Out No longer eligi [...] Procedure Name Priority Date/Time Associated Diagnosis Comments EXTERNAL MRI REPORT 05/29/2025 EXTERNAL MRI REPORT 05/29/2025 COMPREHENSIVE METABOLIC PANEL Routine 02/09/2025 10:01 AM EDT Type 2 diabetes mellitus with hyperlipidemia ([facility] V24, [facility] V28) HEMOGLOBIN A1C Routine 02/09/2025 10:01 AM EDT Type 2 diabetes mellitus with hyperlipidemia ([facility] V24, [facility] V28) LIPID PANEL WITH REFLEX TO DIRECT LDL Routine 02/09/2025 10:01 AM EDT Type 2 diabetes mellitus with hyperlipidemia ([facility] V24, [facility] V28) EXTERNAL DIABETIC RETINA EYE EXAM 12/23/2024 DIABETES FOOT EXAM Routine 02/10/2024 DEPRESSION SCREENING Routine 2024 from Last 3 Months or Most Recently Relevant to Health Maintenance Results * External MRI Report (05/29/2025) Only the most recent of2 resultswithin the time period is included. Anatomical Region Laterality Modality Magnetic Resonan ce us Provider [facility] MRI PROCEDURES Final Result * (ABNORMAL) Lipid panel with reflex to direct LDL (02/09/2025 10:01 AM EDT) Cholesterol 137 0 - 200 mg/dL LAB CHEMISTRY METHOD [facility] Triglycerides 199(H) 0 - 150 mg/dL LAB CHEMISTRY METHOD 02/09/2025 1:[address] [facility] HDL 42 >=40 mg/dL LAB CHEMISTRY METHOD 02/09/2025 1:[address] [facility] LDL Calculated 55 0 - 100 mg/dL LAB CHEMISTRY METHOD 02/09/2025 1:47 PM EDT [facility] VLDL Cholesterol Sam 39.8 mg/dL LAB CHEMISTRY METHOD 02/09[facility]2025 [facility] Non HDL Chol. (LDL+VLDL) 95 <145 mg/dL LAB CHEMISTRY METHOD 02/09/2025 1:47 PM EDT [facility] Chol/HDL Ratio 3.3 0.0 - 4.4 LAB CHEMISTRY METHOD 02/09/2025 1:47 PM EDT [facility] Blood Venous blood specimen / Unknown Venipuncture / Unknown 02/09/2025 10:01 AM EDT 02/09/2025 10:06 AM EDT us Arianna Conte MD LAB BLOOD ORDERABLES Final Res ult Performing Organization Address City/[facility]/ZIP Co de Phone Number [facility] [address] [place] [address], [place] [phone] * Hemoglobin A1c (02/09/2025 10:01 AM EDT) Hemoglobin A1C 6.3 <6.5 % LAB CHEMISTRY METHOD 02/09/2025 5:16 PM EDT [facility] Mean Bld Glu Estim. 134 mg/dL LAB CHEMISTRY METHOD 02/09/2025 5:16 PM EDT [facility] Blood Venous blood specimen / Unknown Venipuncture / Unknown 02/09/2025 10:01 AM EDT 02/09/2025 10:06 AM EDT us Arianna Conte MD LAB BLOOD ORDERABLES Final Res ult Performing Organization Address [facility]/ZIP Co de Phone Number [facility] [address] [place] [address], [place] [phone] * (ABNORMAL) Comprehensive metabolic panel (02/09/2025 10:01 AM EDT) Sodium 140 133 - 145 mmol/L LAB CHEMISTRY METHOD 02/09/2025 1:47 PM EDT [facility] Potassium 4.6 3.5 - 5.5 mmol/L LAB CHEMISTRY METHOD 02/09/2025 1:47 PM EDT [facility] Chloride 107 96 - 110 mmol/L LAB CHEMISTRY METHOD 02/09/2025 1:47 PM EDT [facility] CO2 25 21 - 32 mmol/L LAB CHEMISTRY METHOD 02/09/2025 1:[address] [facility] Anion Gap 8 3 - 11 LAB CHEMISTRY METHOD 02/09/2025 1:[address] [facility] Glucose 259(H) 70 - 100 mg/dL LAB CHEMISTRY METHOD 02/09/2025 1:[address] [facility] BUN 27(H) 5 - 25 mg/dL LAB CHEMISTRY METHOD 02/09/2025 1:[address] [facility] Creatinine 1.75(H) 0.70 - 1.30 mg/dL LAB CHEMISTRY METHOD 02/09/2025 1:[address] [facility] eGFR 37(L) >=60 mL/min/1. 73m2 LAB CHEMISTRY METHOD 02/09/2025 1:[address] [facility] Comment:Calculation based on the Chronic Kidney Disease Epidemiology Collaboration (CKD-EPI) equation refit without adjustment for race. BUN/Creatinine Ratio 15.4 LAB CHEMISTRY METHOD 02/09/2025 1:[address] [facility] Calcium 9.8 8.5 - 10.5 mg/dL LAB CHEMISTRY METHOD 02/09/2025 1:[address] [facility] AST (SGOT) 18 10 - 42 unit/L LAB CHEMISTRY METHOD 02/09/2025 1:[address] [facility] ALT (SGPT) 22 10 - 60 unit/L LAB CHEMISTRY METHOD 02/09/2025 1:[address] [facility] Alkaline Phosphatase 72 42 - 121 unit/L LAB CHEMISTRY METHOD 02/09/2025 1:[address] [facility] Total Protein 6.7 6.0 - 8.0 g/dL LAB CHEMISTRY METHOD 02/09/2025 1:[address] [facility] Albumin 4.0 3.2 - 5.0 g/dL LAB CHEMISTRY METHOD 02/09/2025 1:47 PM EDT [facility] Total Bilirubin 0.5 0.0 - 1.4 mg/dL LAB CHEMISTRY METHOD 02/09/2025 1:47 PM EDT [facility] Blood Venous blood specimen / Unknown Venipuncture / Unknown 02/09/2025 10:01 AM EDT 02/09/2025 10:06 AM EDT Arianna Conte MD LAB BLOOD ORDERABLES Final Res ult [facility] [address] [place] [address], [place] [phone] * External Diabetic Retina Eye Exam Report (12/23/2024) Anatomical Region Laterality Modality Ultrasound us Provider [facility] IMG US PROCEDURES Final Result * Diabetes Foot Exam (02/10/2024) Pathologist [facility] Diabetes: Annual Foot Exam abstracted Historical Provider HEALTH MAINTENANCE Final Result * Depression Screening (2024) [facility] Depression Screening abstracted Historical Provider HEALTH MAINTENANCE Final Result from Last 3 Months or Most Recently Relevant to Health Maintenance Insurance [employer] MED[employer]ARE [employer]VANTAGE Care Teams Broaching Machine Set Up Operator Relationship Specialty Start Date End Date Arianna Conte MD [address] [place] [address] [place] [address] PCP - General Internal Medicine 01/25/21
== END 2025-07-04 13:13 | disposition home or self-care (01) ==
LOC: HO.HSM 12:44
PROVIDERS: PCP Pediatrics; Visit Provider Psychiatry & Neurology Neurology
DX: G30.1 Alzheimer's disease with late onset (principal); F02.B0 Dementia in other diseases classified elsewhere, moderate, without behavioral disturbance, psychotic disturbance, mood disturbance, and anxiety; G20.A1 Parkinson's disease without dyskinesia, without mention of fluctuations; F03.90 Unspecified dementia, unspecified severity, without behavioral disturbance, psychotic disturbance, mood disturbance, and anxiety
CPT/HCPCS: 99214